=== PATIENT | male | born 1990 | race Two or more races ===

== ENCOUNTER 2020-05-10 00:50 | Emergency (ER) | payer SELFPAY ==
[~2020-05-10] VITALS: Ht 170.2 cm; Wt 97.5 kg
[2020-05-10] MEDS ORDERED: ONDANSETRON ODT 4 MG TAB PO ONE (02:45)
[2020-05-10] MEDS ORDERED: HYDROcodone-ACET 5/325MG TAB PO ONE (02:45)
[2020-05-10 03:00] VITALS: BP 141/98
== END 2020-05-10 03:33 | disposition home or self-care (01) ==
LOC: ER 00:58
DX: S00.83XA Contusion of other part of head, initial encounter (principal); S00.01XA Abrasion of scalp, initial encounter; Y08.89XA Assault by other specified means, initial encounter; Y93.89 Activity, other specified; Y99.8 Other external cause status; Y92.89 Other specified places as the place of occurrence of the external cause
CPT/HCPCS: 70450; 70486; 72125; 99285; Q0162